=== PATIENT | male | born 2000 | race Caucasian/White ===

== ENCOUNTER 2024-01-03 18:16 | Emergency (ER) | payer OTHER ==
[2024-01-03 18:35] VITALS: BP 150/73; O2SAT 100
--- NOTE | 2024-01-03 18:46 | XRAY Report ---
PROCEDURE: Foot 3+V LT INDICATIONS: Trauma TECHNIQUE: 3 views of the foot were acquired. COMPARISON: None. FINDINGS: Bones: No fractures or dislocations. Specifically, the fifth metatarsal demonstrates no fracture. No suspicious bony lesions. Soft tissues: No tibiotalar joint effusion. Achilles tendon appears normal. IMPRESSION: No displaced fractures are seen on this plain film study. In this patient with a given history of trauma, please correlate with focal tenderness. If clinically appropriate, please consider a short-term follow-up plain films series versus a dedicated CT study. Reviewed by: Alvin Franks MD on 01/03/2024 5:45 PM [facility] Approved by: Alvin Franks MD on 01/03/2024 5:45 PM [facility] Station ID: [id number]
--- NOTE | 2024-01-03 20:11 | ED Physician Documentation ---
History of Present Illness - Stated complaint Stated Complaint: LT FOOT PX - Chief complaint Chief Complaint: Ext Problem - History obtained from History obtained from: Patient, Family - History of Present Illness Timing: How many days ago (3) Pain level max: 5 Pain level now: 3 - Additonal information Additional information: 23-year-old male sent to the emergency department complaining of left lateral foot pain. He states that it is worse with running and worse with being in a running shoe. Better with being in his combat boots from the . It is mainly on the plantar aspect of the foot. Review of Systems Constitutional: denies: Fever, Chills GI: denies: Nausea, Vomiting Neurologic: denies: Headache PD PAST MEDICAL HISTORY - Past Medical History Past Medical History: No - Past Surgical History Past Surgical History: No - Allergies Allergies/Adverse Reactions: Allergies Allergy/AdvReac Type Severity Reaction Status Date / Time No Known Drug Allergies Allergy Verified 01/03/24 19:15 - Social History Does the pt smoke?: No Smoking Status: Never smoker - Immunizations Immunizations are current?: Yes PD ED PE NORMAL - Vitals Vital signs reviewed: Yes - General General: Alert and oriented X 3, No acute distress - HEENT HEENT: Moist mucous membranes - Derm Derm: Warm and dry - Extremities Extremities: Other (Tenderness to palpation along the plantar aspect of the left foot. Pain with extension of the toes along the plantar aspect of the foot. No swelling. No bony tenderness. No deformity. Neurovascular intact) - Neuro Neuro: Alert and oriented X 3 Results - Vitals Vitals: Vital Signs - 24 hr 01/03/24 18:24 Temperature 36.3 C L Heart Rate 70 Respiratory 16 Rate Blood Pressure 150/73 H O2 Saturation 100 - Rads (name of study) Left foot x-ray Relevant Findings:: Final report received, See rad report PD Medical Decision Making - ED course Complexity details: reviewed results, considered differential, d/w patient ED course: No acute findings on x-ray of the left foot. Appears to have plantar fasciitis clinically. Counseled regarding supportive care, ice, well-fitting shoes, hard soled shoes, stretching. [place]. Patient counseled regarding signs and symptoms for which I believe and urgent re-evaluation would be necessary. Patient with good understanding of and agreement to plan and is comfortable going home at this time This document was made in part using voice recognition software. While efforts are made to proofread this document, sound alike and grammatical errors may occur. Departure - Departure Disposition: 01 Home, Self Care Clinical Impression: Plantar fasciitis of left foot Condition: Good Instructions: ED Plantar Fasciitis Follow-Up: MELISSA Aguilar [Provider Group] Comments: Please follow-up with your doctor for further care. Your x-rays do not show any acute abnormalities today. As we discussed your symptoms are consistent with plantar fasciitis. Please stretch the area, as we discussed a frozen water bottle rubbed on the bottom of your foot can help as well. Stretching the calves and strengthening the tibialis anterior can help to alleviate symptoms as well. Forms: PCP List Discharge Date/Time: 01/03/24 20:15
== END 2024-01-03 20:15 | disposition home or self-care (01) ==
LOC: ED 18:16
DX: M72.2 Plantar fascial fibromatosis (principal)
CPT/HCPCS: 99283